=== PATIENT | male | born 1985 | race Caucasian/White ===

== ENCOUNTER → 2016-05-16 | Outpatient (REF) ==
[~2016-05-16] MED LIST: ZOFRAN ODT4 MG PO
== END ==
LOC: WSOH 10:20 → WSPT 11:30
DX: Z02.1 Encounter for pre-employment examination (principal)

== ENCOUNTER → 2016-05-18 | Outpatient (REF) | LOC: WSOH 10:30 | DX: Z02.89 Encounter for other administrative examinations (principal) ==

== ENCOUNTER → 2016-06-18 | Outpatient (REF) | LOC: WSOH 12:17 | DX: Z01.83 Encounter for blood typing (principal) ==

== ENCOUNTER → 2016-07-04 | Outpatient (REF) | LOC: WSOH 10:24 | DX: Z00.00 Encounter for general adult medical examination without abnormal findings (principal) ==